=== PATIENT | male | born 1970 | race Caucasian/White ===

== ENCOUNTER 2017-05-07 23:37 | Inpatient (IN) | payer OTHER ==
--- NOTE | 2017-05-08 00:23 | PDOC ---
Attending Attestation - HPI HPI: 05/08/17 00:40 The patient is a 46 year old male, with a significant past medical history of hypertension and diabetes(insulin dependent), who presents to the emergency department with abdominal pain for approximately 2 days. The patient reports his pain was initially localized in his left lower quadrant, but is now localized in his right lower quadrant, but is nonradiating in nature. He rates his pain a 7-8/10. After dinner, patient reports several episodes of emesis(non bloody/non bilious in nature). He denies any fever, chills, diarrhea, or constipation. He denies any dysuria, hematuria, frequency, or urgency, He denies any prior history of abdominal surgeries. Patient reports 2 episodes of similar pain after eating cheese a few months ago, but states the pain was not as severe. Patient reports a history of heavy ETOH use, however, he states he has reduced his drinking to a bottle of scotch on the weekends. Allergies: NKDA Past Surgical History: None reported Social History: Social ETOH use. Non smoker. No recreational drug use. - Physicial Exam PE: 05/08/17 00:41 GENERAL: Well-appearing, well-nourished. Moderate distress. HEENT: Normocephalic, atraumatic. PERRL, EOM intact. CARDIOVASCULAR: Normal S1, S2. Regular rate and rhythm. PULMONARY: Clear to auscultation bilaterally. ABDOMEN: +RLQ tenderness, but no rebound or guarding. +Psoas sign. Soft, non-distended. Normoactive bowel sounds. EXTREMITIES: Normal ROM in all four extremities. No gross deformities. SKIN: Warm, dry. No rash NEUROLOGICAL: No focal neurological deficits. - Medical Decision Making 05/08/17 00:42 Documentation prepared by Caitie Donaldson, acting as medical driver for Noble Kyle DO. EXAM: CT Abdomen and Pelvis INTERPRETED BY: Dr. Noel REVIEWED BY: Dr. Kyle IMPRESSION: 1.3 cm diameter thick-walled appendix with surrounding fat inflammation, consistent with acute appendicitis. No abscess or free air. Neglible ascites lower pelvis. Minimal splenomegaly. <Caitie Donaldson - Last Filed: 05/08/17 04:56> - Resident Resident Name: Rachna Pal - ED Attending Attestation I have performed the following: I have examined & evaluated the patient, The case was reviewed & discussed with the resident, I agree w/resident's findings & plan, Exceptions are as noted - Medical Decision Making 05/08/17 05:00 Pt admitted for Acute Appendicitis <Noble Kyle - Last Filed: 05/08/17 05:00>
[2017-05-08] MEDS ORDERED: ONDANSETRON *ODT* 4 MG TABLET SL ONE (00:30)
[2017-05-08] MEDS ORDERED: morphine SULFATE 4 MG/ML VIAL IVPUSH ONE (00:30)
[2017-05-08] MEDS ORDERED: morphine CARPU-JECT 2 MG/1 ML DISP.SYRIN IVPUSH ONE (00:30)
[2017-05-08] MEDS ORDERED: SODIUM CHLORIDE 1,000 ML IV STA (00:31)
[2017-05-08] MEDS ORDERED: morphine SULFATE 4 MG/ML VIAL ONE ×2 (00:51→03:08)
[2017-05-08] MEDS ORDERED: ONDANSETRON 4 MG/2 ML VIAL ONE (00:51)
[2017-05-08 01:06] LABS: BASO % 0.5 % (0-2.0); MCH 30.4 pg (25.7-33.7); MCHC 34.1 g/dl (32.0-35.9); MEAN CELL VOLUME 89.3 fl (80-96); MEAN PLT VOLUME 9.4 fl (7.5-11.1); NEUT % 70.5 % (42.8-82.8); PLATELET COUNT 206 K/MM3 (134-434); WHITE BLOOD COUNT 12.8 K/mm3 (4.0-10.0)
--- NOTE | 2017-05-08 01:21 | PDOC ---
History of Present Illness - General Chief Complaint: Pain, Acute Stated Complaint: ABD PAIN Time Seen by Provider: 05/08/17 00:05 - History of Present Illness Initial Comments: 05/08/17 01:16 46yo man with PMH of HTN and IDDM who presents with acute onset lower abdominal pain and NBNB emesis since earlier this evening. Patient was at [facility] when after dinner he reports having LLQ pain that is now currently localized to RLQ. Pain is non-radiating and 7-8/10 in severity. He then had several episodes of NBNB emesis. No one else in the house has similar symptoms. No recent travel or illness. Denies fever, chills, diarrhea. Never smoker, drinks 1 bottle scotch per weekend, no drugs No prior surgeries No known allergies to medications Past History - Past Medical History Allergies/Adverse Reactions: Allergies Allergy/AdvReac Type Severity Reaction Status Date / Time No Known Allergies Allergy Verified 05/08/17 00:55 Home Medications: Ambulatory Orders NK [No Known Home Medication] 05/08/17 - Suicide/Smoking/Psychosocial Hx Smoking History: Never smoked Have you smoked in the past 12 months: No Information on smoking cessation initiated: No Hx Alcohol Use: No Drug/Substance Use Hx: No Review of Systems - Review of Systems ABD/GI: Yes: See HPI All Other Systems: Reviewed and Negative *Physical Exam - Vital Signs Last Vital Signs Temp Pulse Resp BP Pulse Ox 98.6 F 20 152/95 99 05/07/17 23:47 05/07/17 23:47 05/07/17 23:47 05/07/17 23:47 - Physical Exam General Appearance: Yes: Nourished, Appropriately Dressed HEENT: positive: Normal ENT Inspection Neck: positive: Supple Respiratory/Chest: positive: Lungs Clear, Normal Breath Sounds Cardiovascular: positive: Regular Rhythm, Regular Rate, S1, S2 Vascular Pulses: Dorsalis-Pedis (R): 2+, Doralis-Pedis (L): 2+ Gastrointestinal/Abdominal: positive: Tender (LLQ, +psoas, -obdurator, -Cohn's ), Flat, Soft. negative: Distended Musculoskeletal: negative: CVA Tenderness Extremity: positive: Normal Inspection. negative: Pedal Edema, Calf Tenderness Neurologic: positive: Fully Oriented, Alert, Normal Mood/Affect Heart Score/ECG Review - ECG Impressions Comment:: 05/08/17 05:22 NSR, rate 86bpm, normal axis and intervals (QTc 430), no ischemic changes ED Treatment Course - LABORATORY CBC & Chemistry Diagram: 05/08/17 00:43 05/08/17 00:43 - ADDITIONAL ORDERS Additional order review: 05/08/17 00:43 RBC 4.77 MCV 89.3 MCHC 34.1 RDW 12.0 MPV 9.4 Neutrophils % 70.5 Lymphocytes % 21.3 Monocytes % 6.7 Eosinophils % 1.0 Basophils % 0.5 - RADIOLOGY Radiology Studies Ordered: Category Date Time Status ABDOMEN & PELVIS CT WITH CONTR [CT] Stat CT Scan 05/08/17 00:30 Ordered Medical Decision Making - Medical Decision Making 46yo man with PMH of HTN and IDDM who presents with acute onset of RLQ pain lateralizing to LLQ and NBNB emesis. Differential includes, but not limited to appendicitis vs SBO vs gastroenteritis. -CT A/P with PO and IV contrast -CBC, CMP -Zofran for nausea, Morphine for pain control 05/08/17 05:00 Patient's pain well controlled with morphine. CT A/P revealed acute appendicitis. Labs remarkable for mild leukocytosis. Will give 1x dose of Flagyl 500mg IVP and Levofloxacin 750mg IVP as patient is diabetic. Will admit patient for appendectomy and order pre-op w/u: Coags, T&S, CXR, EKG 05/08/17 06:20 Admitted to M/S by Hospitalist. *DC/Admit/Observation/Transfer Diagnosis at time of Disposition: Acute appendicitis - Discharge Dispostion Condition at time of disposition: Stable Admit: Yes - Referrals - Patient Instructions - Post Discharge Activity
[2017-05-08 01:30] LABS: ALBUMIN 4.1 g/dl (3.4-5.0); ALK PHOS 53 U/L (45-117); ANION GAP 10 (8-16); BILIRUBIN,TOTAL 0.5 mg/dL (0.2-1.0); CALCIUM 8.9 mg/dL (8.5-10.1); CO2 29 mmol/L (21-32); CREATININE 0.8 mg/dL (0.7-1.3); GLUCOSE,RANDOM 117 mg/dL (74-106); SGOT/AST 19 U/L (15-37); SGPT/ALT 44 U/L (12-78); TOT PROT 7.1 g/dl (6.4-8.2)
[2017-05-08] MEDS ORDERED: METRONIDAZOLE 500 MG PREMIXED 500 MG/100 ML MG IVPB ONE ×2 (04:58→05:08)
[2017-05-08] MEDS ORDERED: LEVOFLOXACIN 750 MG IVPB 750 MG/150 ML BAG IVPB ONE ×2 (04:59→05:10)
[2017-05-08 05:24] LABS: INR 1.06 (0.82-1.09)
[2017-05-08] MEDS ORDERED: ONDANSETRON 4 MG/2 ML VIAL IVPUSH PRN ×2 (05:24→13:41)
[2017-05-08] MEDS ORDERED: morphine SULFATE 4 MG/ML VIAL IVPUSH PRN ×2 (05:24→13:41)
--- NOTE | 2017-05-08 05:28 | HP ---
<Geoffrey Oviedo - Last Filed: 05/08/17 05:45> CHIEF COMPLAINT: Abdominal Pain PCP:Not on staff HISTORY OF PRESENT ILLNESS: 46 year old M with pmh of IDDM and HTN presenting with abdominal pain. Patient came home from work and drank some coffee. He began feeling distended with LLQ pain. Pain was 10/10 and sharp. Patient then had 2 episodes of NB, NB emesis. His pain then was in the RLQ. Patient denies fever, chills, chest pain, SOB, diarrhea, constipation. ER course was notable for: (1) Labs remarkable for mild leukocytosis. (2) CT A/P revealed acute appendicitis (3) 1x dose of Flagyl 500mg IVP and Levofloxacin 750mg IVP Recent Travel: denies PAST MEDICAL HISTORY: as per hpi PAST SURGICAL HISTORY: denies Social History: Smoking: denies Alcohol: denies Drugs: denies Family History: Allergies No Known Allergies Allergy (Verified 05/08/17 00:55) HOME MEDICATIONS: Home Medications Medication Instructions Recorded NK [No Known Home Medication] 05/08/17 REVIEW OF SYSTEMS CONSTITUTIONAL: Absent: fever, chills, diaphoresis, generalized weakness, malaise, loss of appetite, weight change HEENT: Absent: rhinorrhea, nasal congestion, throat pain, throat swelling, difficulty swallowing, mouth swelling, ear pain, eye pain, visual changes CARDIOVASCULAR: Absent: chest pain, syncope, palpitations, irregular heart rate, lightheadedness , peripheral edema RESPIRATORY: Absent: cough, shortness of breath, dyspnea with exertion, orthopnea, wheezing, stridor, hemoptysis GASTROINTESTINAL: Absent: abdominal pain, abdominal distension, nausea, vomiting, diarrhea, constipation, melena, hematochezia GENITOURINARY: Absent: dysuria, frequency, urgency, hesitancy, hematuria, flank pain, genital pain MUSCULOSKELETAL: Absent: myalgia, arthralgia, joint swelling, back pain, neck pain SKIN: Absent: rash, itching, pallor HEMATOLOGIC/IMMUNOLOGIC: Absent: easy bleeding, easy bruising, lymphadenopathy, frequent infections ENDOCRINE: Absent: unexplained weight gain, unexplained weight loss, heat intolerance, cold intolerance NEUROLOGIC: Absent: headache, focal weakness or paresthesias, dizziness, unsteady gait, seizure, mental status changes, bladder or bowel incontinence PSYCHIATRIC: Absent: anxiety, depression, suicidal or homicidal ideation, hallucinations. PHYSICAL EXAMINATION Vital Signs - 24 hr 05/07/17 23:47 Temperature 98.6 F Respiratory 20 Rate Blood Pressure 152/95 O2 Sat by Pulse 99 Oximetry (%) GENERAL: Awake, alert, and fully oriented, in no acute distress. HEAD: Normal with no signs of trauma. EYES: Extraocular movements intact, sclera anicteric, conjunctiva clear. No lid lag. EARS, NOSE, THROAT: Oropharynx clear without exudates. Moist mucous membranes. NECK: Normal range of motion, supple without lymphadenopathy, JVD, or masses. LUNGS: Breath sounds equal, clear to auscultation bilaterally. No wheezes, and no crackles. No accessory muscle use. HEART: Regular rate and rhythm, normal S1 and S2 without murmur, rub or gallop. ABDOMEN: Soft, +RLQ tenderness, not distended, normoactive bowel sounds, no guarding, no rebound, no masses. No hepatomegaly or splenomegaly. negative yi's, negative psoas, negative obturator MUSCULOSKELETAL: Normal range of motion at all joints. No bony deformities or tenderness. No CVA tenderness. UPPER EXTREMITIES: 2+ pulses, warm, well-perfused. No cyanosis. No clubbing. No peripheral edema. LOWER EXTREMITIES: 2+ pulses, warm, well-perfused. No calf tenderness. No peripheral edema. NEUROLOGICAL: Cranial nerves II-XII intact. Normal speech. PSYCHIATRIC: Cooperative. Good eye contact. Appropriate mood and affect. SKIN: Warm, dry, normal turgor, no rashes or lesions noted, normal capillary refill. Laboratory Results - last 24 hr 05/08/17 05/08/17 00:43 00:43 WBC 12.8 H RBC 4.77 Hgb 14.5 Hct 42.6 MCV 89.3 MCH 30.4 MCHC 34.1 RDW 12.0 Plt Count 206 MPV 9.4 Neutrophils % 70.5 Lymphocytes % 21.3 Monocytes % 6.7 Eosinophils % 1.0 Basophils % 0.5 Sodium 139 Potassium 3.8 Chloride 100 Carbon Dioxide 29 Anion Gap 10 BUN 15 Creatinine 0.8 Creat Clearance w eGFR > 60 Random Glucose 117 H Calcium 8.9 Total Bilirubin 0.5 AST 19 ALT 44 Alkaline Phosphatase 53 Total Protein 7.1 Albumin 4.1 ASSESSMENT/PLAN: 46 year old M with pmh of HTN and IDDM presenting with abdominal pain admitted for acute appendicitis. #Acute appendicitis -NPO -IVF NS @ 125 cc/hr -PT/INR/T&S pending -Surgery consulted, Dr. Drake -Morphine 2mg q4 prn -Zofran 4mg q6h prn -1x dose of Flagyl 500mg IVP and Levofloxacin 750mg IVP #HTN -Home medications need to be confirmed #HLD -Home medications need to be confirmed #IDDM -BGM achs -ISS achs -Hold metformin #FEN/GI -IVF NS @ 125 cc/hr -wnl -NPO #PPx -SCDs b/l -Pepcid 20 mg IV BID Case discussed with medical team. Visit type - Emergency Visit Emergency Visit: Yes Care time: The patient presented to the Emergency Department on the above date and was hospitalized for further evaluation of their emergent condition. - New Patient This patient is new to me today: Yes Date on this admission: 05/08/17 - Critical Care Critical Care patient: No <Olga Lidia Del Rio - Last Filed: 05/08/17 06:39> Patient is seen and examined Agree with plan above 46 year old male with acute onset of abdominal pain CT imaging - appendicitis PMH DM HTn Vital Signs Temperature 98.6 F 05/07/17 23:47 Pulse Rate Respiratory Rate 20 05/07/17 23:47 Blood Pressure 152/95 05/07/17 23:47 O2 Sat by Pulse Oximetry (%) 99 05/07/17 23:47 LUNGS: Breath sounds equal, clear to auscultation bilaterally. No wheezes, and no crackles. No accessory muscle use. HEART: Regular rate and rhythm, normal S1 and S2 without murmur, rub or gallop. ABDOMEN: Soft, +RLQ tenderness, not distended, normoactive bowel sounds, CBC, BMP 05/08/17 00:43 05/08/17 00:43 PLAN NPO Surgical evaluation for appendectomy IVF insuulin SS 46 year old male that presented to the ED on 05/07 around 23:00 with complaints of abdominal pain . He met the necessity for the first midnight of hospitalization due to need for pain control and CT imaging . First midnight was crossed while in ED . Based on the current plan for NPO and laparoscopic and possibly open appendectomy and need for postoperative pain management / monitoring , anticipated length of hospitalization is greater then 2 midnights. Will admit as an inpatient .
[2017-05-08] MEDS ORDERED: SODIUM CHLORIDE 1,000 ML IV SCH ×2 (05:30→13:41)
[2017-05-08 06:53] VITALS: BMI 29.7
[2017-05-08] MEDS: INSULIN SLIDING SCALE (NOVOLOG) 1 VIAL SQ SCH ×3 (06:58→16:52)
--- NOTE | 2017-05-08 07:50 | PN ---
Physical Exam: SUBJECTIVE: Patient seen and examined OBJECTIVE: Vital Signs Intake & Output 05/05/17 05/06/17 05/07/17 05/08/17 23:59 23:59 23:59 23:59 Weight 86.183 kg 91.354 kg Period Temp Pulse Resp BP Sys/Tidwell Pulse Ox Last 24 Hr 98.0 F-98.6 F 82 20-20 127-152/79-95 93-99 GENERAL: The patient is awake, alert, and fully oriented, in no acute distress. HEAD: Normal with no signs of trauma. EYES: PERRL, extraocular movements intact, sclera anicteric, conjunctiva clear. No ptosis. ENT: Ears normal, nares patent, oropharynx clear without exudates, moist mucous membranes. NECK: Trachea midline, full range of motion, supple. LUNGS: Breath sounds equal, clear to auscultation bilaterally, no wheezes, no crackles, no accessory muscle use. HEART: Regular rate and rhythm, S1, S2 without murmur, rub or gallop. ABDOMEN: Soft, nontender, nondistended, normoactive bowel sounds, no guarding, no rebound, no hepatosplenomegaly, no masses. EXTREMITIES: 2+ pulses, warm, well-perfused, no edema. NEUROLOGICAL: Cranial nerves II through XII grossly intact. Normal speech, gait not observed. PSYCH: Normal mood, normal affect. SKIN: Warm, dry, normal turgor, no rashes or lesions noted Laboratory Results - last 24 hr CBC, BMP 05/08/17 00:43 05/08/17 00:43 05/08/17 05/08/17 05/08/17 00:43 00:43 04:55 WBC 12.8 H RBC 4.77 Hgb 14.5 Hct 42.6 MCV 89.3 MCH 30.4 MCHC 34.1 RDW 12.0 Plt Count 206 MPV 9.4 Neutrophils % 70.5 Lymphocytes % 21.3 Monocytes % 6.7 Eosinophils % 1.0 Basophils % 0.5 PT with INR 12.00 H INR 1.06 Sodium 139 Potassium 3.8 Chloride 100 Carbon Dioxide 29 Anion Gap 10 BUN 15 Creatinine 0.8 Creat Clearance w eGFR > 60 POC Glucometer Random Glucose 117 H Calcium 8.9 Total Bilirubin 0.5 AST 19 ALT 44 Alkaline Phosphatase 53 Total Protein 7.1 Albumin 4.1 Blood Type Antibody Screen 05/08/17 05/08/17 04:55 06:56 WBC RBC Hgb Hct MCV MCH MCHC RDW Plt Count MPV Neutrophils % Lymphocytes % Monocytes % Eosinophils % Basophils % PT with INR INR Sodium Potassium Chloride Carbon Dioxide Anion Gap BUN Creatinine Creat Clearance w eGFR POC Glucometer 138 Random Glucose Calcium Total Bilirubin AST ALT Alkaline Phosphatase Total Protein Albumin Blood Type A POSITIVE Antibody Screen Negative Active Medications Generic Name Dose Route Start Last Admin Trade Name Freq PRN Reason Stop Dose Admin Sodium Chloride 1,000 mls @ 125 mls/hr 05/08/17 05:30 05/08/17 05:54 Normal Saline - IV 125 mls/hr ASDIR SAMUEL Administration Famotidine 20 mg in 12 mls @ 144 mls/hr 05/08/17 10:00 Pepcid 20 Mg/12 Ml Push IVPUSH BID SAMUEL Insulin Aspart 1 vial 05/08/17 07:00 05/08/17 06:58 Novolog Vial Sliding Scale - SQ Not Given ACHS [facility] Protocol Morphine Sulfate 2 mg 05/08/17 05:24 Morphine Sulfate IVPUSH Q4H PRN PAIN Ondansetron HCl 4 mg 05/08/17 05:24 Zofran Injection IVPUSH Q6H PRN NAUSEA CXR 05/08 - No lung pathology CT abdomen/pelvis 05/08 - ASSESSMENT/PLAN:
[2017-05-08 09:00] LABS: BASO % 0.4 % (0-2.0); EOS % 1.1 % (0-4.5); MCH 30.1 pg (25.7-33.7); MEAN CELL VOLUME 88.6 fl (80-96); MEAN PLT VOLUME 9.3 fl (7.5-11.1); NEUT % 72.3 % (42.8-82.8); PLATELET COUNT 173 K/MM3 (134-434); RDW 12.2 % (11.9-15.9); WHITE BLOOD COUNT 11.8 K/mm3 (4.0-10.0)
--- NOTE | 2017-05-08 09:13 | EKG ---
Test Reason : Blood Pressure : / mmHG Vent. Rate : 086 BPM Atrial Rate : 086 BPM P-R Int : 168 ms QRS Dur : 082 ms QT Int : 360 ms P-R-T Axes : 052 042 049 degrees QTc Int : 430 ms NORMAL SINUS RHYTHM NO PREVIOUS ECGS AVAILABLE Confirmed by JABARI NIETO MD ([id number]) on 05/08/2017 9:13:16 AM Referred By: Confirmed By:JABARI NIETO MD
[2017-05-08 09:21] LABS: ANION GAP 7 (8-16); CALCIUM 7.8 mg/dL (8.5-10.1); CO2 27 mmol/L (21-32); CREATININE 0.7 mg/dL (0.7-1.3); GLUCOSE,RANDOM 127 mg/dL (74-106)
--- NOTE | 2017-05-08 09:55 | CONSULT ---
- Consultation REQUESTING PROVIDER: Quang MORALES CONSULT REQUEST: We have been asked to surgically evaluate this patient for ( specify). PCP:Sandrita Forbes HISTORY OF PRESENT ILLNESS: CTSP who is a 46 y/o male who presented w/ RLQ pain that started ~ 24 hours ago as generalized and then localized to the RLQ; he has associated n/v; he admits to anorexia; pain increased by moving around; decreased by lying still; no radiation from RLQ; he denies any other GI or c/o's. H and P conducted in [place]. PMHx: IDDM; hypertension PSHx: none Home Medications Medication Instructions Recorded Aspirin [ASA -] 81 mg PO DAILY 05/08/17 Dulaglutide [Trulicity] 1 dose SQ WEEKLY 05/08/17 Fosinopril Sodium 20 mg PO DAILY 05/08/17 Insulin Glargine,Hum.rec.anlog 45 units SQ DAILY 05/08/17 [Basaglar Kwikpen U-100] Metformin HCl [Glucophage] 1,000 mg PO BID 05/08/17 Allergies Allergy/AdvReac Type Severity Reaction Status Date / Time No Known Allergies Allergy Verified 05/08/17 00:55 REVIEW OF SYSTEMS: CONSTITUTIONAL: Absent: fever, chills, diaphoresis, generalized weakness, malaise, loss of appetite, weight change CARDIOVASCULAR: Absent: chest pain, syncope, palpitations, irregular heart rate, lightheadedness , peripheral edema RESPIRATORY: Absent: cough, shortness of breath, dyspnea with exertion, wheezing, stridor, hemoptysis GASTROINTESTINAL: Absent: abdominal pain on this admission only, abdominal distension, nausea, vomiting, diarrhea, constipation, melena, hematochezia GENITOURINARY: Absent: dysuria, frequency, urgency, hesitancy, hematuria, flank pain, genital pain MUSCULOSKELETAL: Absent: myalgia, arthralgia, joint swelling, back pain, neck pain SKIN: Absent: rash, itching, pallor HEMATOLOGIC/IMMUNOLOGIC: Absent: easy bleeding, easy bruising, lymphadenopathy NEUROLOGIC: Absent: headache, focal weakness, paresthesias, dizziness, unsteady gait, seizure, mental status changes, bladder or bowel incontinence PSYCHIATRIC: Absent: anxiety, depression, suicidal or homicidal ideation, hallucinations. PHYSICAL EXAM: GENERAL: Awake, alert, and fully oriented, in no acute distress. HEAD: Normal with no signs of trauma. EYES:sclera anicteric, conjunctiva clear. NECK: Normal ROM, supple without lymphadenopathy, JVD, or masses. LUNGS: Clear to auscultation bilat anteriorly. HEART: Regular rate and rhythm. No murmurs ABDOMEN: Soft, RLQ tenderness w/guarding; no rebound; Rovsings; psoas and obturator signs are present; not distended, normoactive bowel sounds. No organomegaly; no hernias. MUSCULOSKELETAL: Normal ROM at all joints. No bony deformities or tenderness. No CVA tenderness. UPPER EXTREMITIES: 2+ pulses, warm, well-perfused. No cyanosis. Cap refill <2 seconds. No peripheral edema. LOWER EXTREMITIES: 2+ pulses, warm, well-perfused. No calf tenderness. No peripheral edema. NEUROLOGICAL: Normal speech, gait not observed. PSYCH: Cooperative. Good eye contact. Appropriate mood and affect. SKIN: Warm, dry, normal turgor, no rashes or lesions noted. Vital Signs Temperature 98.0 F 05/08/17 06:25 Pulse Rate 82 05/08/17 06:25 Respiratory Rate 20 05/08/17 06:25 Blood Pressure 127/79 05/08/17 06:25 O2 Sat by Pulse Oximetry (%) 93 L 05/08/17 06:25 Lab Results WBC 11.8 K/mm3 (4.0-10.0) H 05/08/17 08:44 RBC 4.42 M/mm3 (4.00-5.60) 05/08/17 08:44 Hgb 13.3 GM/dL (11.7-16.9) 05/08/17 08:44 Hct 39.2 % (35.4-49) 05/08/17 08:44 MCV 88.6 fl (80-96) 05/08/17 08:44 MCHC 34.0 g/dl (32.0-35.9) 05/08/17 08:44 RDW 12.2 % (11.9-15.9) 05/08/17 08:44 Plt Count 173 K/MM3 (134-434) 05/08/17 08:44 Sodium 137 mmol/L (136-145) 05/08/17 08:44 Potassium 3.9 mmol/L (3.5-5.1) 05/08/17 08:44 Chloride 103 mmol/L (98-107) 05/08/17 08:44 Carbon Dioxide 27 mmol/L (21-32) 05/08/17 08:44 Anion Gap 7 (8-16) L 05/08/17 08:44 BUN 12 mg/dL (7-18) 05/08/17 08:44 Creatinine 0.7 mg/dL (0.7-1.3) 05/08/17 08:44 Random Glucose 127 mg/dL (74-106) H 05/08/17 08:44 Calcium 7.8 mg/dL (8.5-10.1) L 05/08/17 08:44 Blood Type A POSITIVE 05/08/17 04:55 Antibody Screen Negative 05/08/17 04:55 INR 1.06 (0.82-1.09) 05/08/17 04:55 CT a/p report and images reviewed IMP:acute appendicitis PLAN; laparoscopic possible open appendectomy; d/w patient r/b/t/a's and he has signed informed consent. Pilo Draek MD FACS Visit type - Case Type Case Type: ED Admission - Emergency Emergency Visit: Yes ED Registration Date: 05/08/17 Care time: The patient presented to the Emergency Department on the above date and was hospitalized for further evaluation of their emergent condition. - New patient This patient is new to me today: Yes Date on this admission: 05/08/17
[2017-05-08] MEDS ORDERED: FAMOTIDINE IV 20 MG/12 ML VIAL IVPUSH SCH (10:00)
[2017-05-08] MEDS ORDERED: METRONIDAZOLE 500 MG PREMIXED 500 MG/100 ML MG IVPB SCH (10:00)
[2017-05-08] MEDS ORDERED: PT OWN MED DRAWER 7, Y5N ONE (10:11)
[2017-05-08] MEDS ORDERED: DEXAMETHASONE SOD PHOSPHATE 4 MG/1 ML VIAL ONE ×2 (11:31→12:44)
[2017-05-08] MEDS ORDERED: LIDOCAINE HCL/PF 2% SDV 5ML VIAL ONE (11:31)
[2017-05-08] MEDS ORDERED: PROPOFOL 20 ML ONE (11:32)
[2017-05-08] MEDS ORDERED: ROCURONIUM BROMIDE 50 MG/5 ML VIAL ONE (11:32)
[2017-05-08] MEDS ORDERED: MIDAZOLAM HCL 2 MG/2 ML SINGLE DOSE VIAL ONE (11:32)
[2017-05-08] MEDS ORDERED: BUPIVACAINE HCL/PF 0.5% (5MG/ML) 10 ML VIAL ONE (11:49)
[2017-05-08] MEDS ORDERED: GLYCOPYRROLATE 0.2 MG/1 ML VIAL ONE (12:44)
[2017-05-08] MEDS ORDERED: NEOSTIGMINE METHYLSULFATE 0.5 MG/ML - 10 ML MDV ONE (12:45)
[2017-05-08] MEDS ORDERED: BUPIVACAINE HCL/PF (5 MG/ML) 30 ML VIAL IJ ONE ×2 (12:55)
[2017-05-08] MEDS ORDERED: PROMETHAZINE HCL 25 MG/1 ML VIAL IVPUSH PRN ×2 (13:20→13:41)
[2017-05-08] MEDS ORDERED: HYDROmorphone HCL CARPU-JECT 1 MG/1 ML DISP.SYRIN IVPUSH PRN ×2 (13:20→13:41)
[2017-05-08] MEDS ORDERED: HYDROmorphone HCL CARPU-JECT 2 MG/1 ML DISP.SYRIN ONE (14:18)
--- NOTE | 2017-05-08 15:17 | OP ---
Operative Note - Note: Operative Date: 05/08/17 Pre-Operative Diagnosis: acute appendicitis Operation: laparoscopic appendectomy Findings: acute suppurative appendicitis Post-Operative Diagnosis: Same as Pre-op Surgeon: Pilo Drake Anesthesiologist/SAP BOBJ DEVELOPER: Jose Dunlap Anesthesia: General Specimens Removed: appendix Estimated Blood Loss (mls): 10 Drains & Tubes with Location: none
[2017-05-09] MEDS: FAMOTIDINE IV 20 MG/12 ML VIAL IVPUSH SCH ×2 (02:57→09:59)
[2017-05-09] MEDS: INSULIN SLIDING SCALE (NOVOLOG) 1 VIAL SQ SCH ×3 (06:20→12:25)
[2017-05-09] MEDS ORDERED: oxyCODONE HCL 5 MG TABLET PO PRN (07:59)
[2017-05-09 09:16] LABS: BASO % 0.3 % (0-2.0); EOS % 0.3 % (0-4.5); MCHC 33.3 g/dl (32.0-35.9); MEAN CELL VOLUME 90.1 fl (80-96); MEAN PLT VOLUME 9.4 fl (7.5-11.1); NEUT % 65.3 % (42.8-82.8); PLATELET COUNT 202 K/MM3 (134-434); WHITE BLOOD COUNT 7.3 K/mm3 (4.0-10.0)
--- NOTE | 2017-05-09 10:38 | PN ---
Progress Note (short form) - Note Progress Note: POD#1 Pt tolerating clears, he has some nausea/emesis last night but it has improved this am. Passed small amount of flatus. Voiding on his own, non-bloody. Vital Signs Period Temp Pulse Resp BP Sys/Tidwell Pulse Ox Last 24 Hr 98.1 F-98.9 F 70-103 10-20 108-137/58-84 96-99 GEN: appears comfortable CV:RRR Lungs: CTA b/l ABD: soft, non-distended, inc tenderness. Inc c/d/i with steri-strips/bandaids LE: SCDs in place and working. CBC, BMP 05/09/17 09:00 05/08/17 08:44 Laboratory Tests 05/08/17 05/08/17 05/09/17 16:45 23:59 05:59 POC Glucometer 182 183 156 A/p: s/p lap appy for acute appendicitis advance diet to diabetic plan for discharge to home today D/w Dr. Drake, discharge instructions completed may resume his aspirin tomorrow <Ansley Moreau - Last Filed: 05/09/17 10:39> - Note Progress Note: Attending Surgeon POD #1 Seen and evaluated; concur w/a/p as outlined above; d/c home today to office f/ u next week. Pilo Drake MD FACS <Pilo Drake - Last Filed: 05/09/17 12:04>
[2017-05-09] MEDS ORDERED: INSULIN DETEMIR 100 UNITS/ML MDV SQ ONE (11:56)
[2017-05-09] MEDS ORDERED: INSULIN (NOVOLOG) ASPART 100 UNITS/ML 10ML VIAL ONE (12:22)
[2017-05-09 14:16] VITALS: BP 114/75; PULSE 88; TEMP 98.4
--- NOTE | 2017-05-09 15:03 | PN ---
Teaching Attending Note Name of Resident: Blessing Galan ATTENDING PHYSICIAN STATEMENT I saw and evaluated the patient. I reviewed the resident's note and discussed the case with the resident. I agree with the resident's findings and plan as documented. SUBJECTIVE: No fever or chills . has minimal Abd pain below the umbilicus . No Nausea , passed gas. OBJECTIVE: NAD Cv : RRR Lung s: CTAB ext : no edema Abd: soft, Nd, TTP in suprapubic area with no rebound tenderness . has endoscopic wounds with clean dressing and streistrips ASSESSMENT AND PLAN: 46 y/o man withh/o DM, HT, HLP, and other medical problems who presented with abd painand was found to have acute appendicitis 1- Acute appendicitis: passed gas , tolerated soft diet. doing well dc home with surgical f/u wound care 2- DM , HLP, HTN: cont home regimen of meds Dc Home
--- NOTE | 2017-05-09 15:50 | DS ---
Physical Exam: SUBJECTIVE: Patient seen and examined by me at bedside. Overnight events noted for nausea and some emesis last night but resolved today. Patient was able to pass a small amount of flatus but no bowel movements. Complains of mild tenderness at the incision site below the umbilicus. Otherwise, patient denies fever, chills, nausea, chest pain, palpitations, shortness of breath, headaches. Patient was able to tolerate Diabetic controlled diet with no nausea, vomiting or abdominal pain. OBJECTIVE: Vital Signs Period Temp Pulse Resp BP Sys/Tidwell Pulse Ox Last 24 Hr 98.1 F-98.9 F 80-103 18-20 108-134/58-84 99-99 PHYSICAL EXAM GENERAL: The patient is awake, alert, and fully oriented, in no acute distress. EYES: PERRL, extraocular movements intact, sclera anicteric, conjunctiva clear. ENT: Oropharynx clear without exudates, moist mucous membranes. LUNGS: Breath sounds equal, clear to auscultation bilaterally, no wheezes, no crackles, no accessory muscle use. HEART: Regular rate and rhythm, without murmur, rub or gallop. ABDOMEN: Soft, distended, tenderness upon palpation of incision site below umbilicus with incision sites c/d/i, Hyperactive bowel sounds, no guarding, no rebound. EXTREMITIES: No peripheral edema. NEUROLOGICAL: Cranial nerves II through XII grossly intact. Normal Speech. No facial droop. Motor strength 5/5 bilaterally. Sensory intact PSYCH: Normal mood, normal affect. SKIN: Warm, dry, normal turgor, no rashes or lesions noted. LABS Laboratory Results - last 24 hr 05/08/17 05/08/17 05/09/17 16:45 23:59 05:59 WBC RBC Hgb Hct MCV MCH MCHC RDW Plt Count MPV Neutrophils % Lymphocytes % Monocytes % Eosinophils % Basophils % POC Glucometer 182 183 156 05/09/17 05/09/17 09:00 12:12 WBC 7.3 D RBC 4.52 Hgb 13.6 Hct 40.8 MCV 90.1 MCH 30.0 MCHC 33.3 RDW 12.0 Plt Count 202 MPV 9.4 Neutrophils % 65.3 Lymphocytes % 25.1 D Monocytes % 9.0 Eosinophils % 0.3 Basophils % 0.3 POC Glucometer [address] Abdomen (05/08/17): FINDINGS CONSISTENT WITH ACUTE APPENDICITIS WITH NO ABSCESS FORMATION Chest X-ray (05/08/17): No evidence of acute pulmonary disease HOSPITAL COURSE: Patient is a 46 year old male with a PMHx of HTN and NIDDMII who presented for RLQ abdominal pain associated with nausea and vomiting and CT revealed an acute appendicitis. Patient was given IV abx in the ED and surgical consult was placed. Patient is S/P Laprascopic appendectomy POD #1 with no complications. Patient did not require much pain medications throughout his medical course and patient had small amount of flatus today with no bowel movements. Patient tolerated Regular diet today with no pain, nausea or vomiting. Patient stable for discharge and was given instruction to follow up with Surgeon and PCP within a week. Patient was advised to continue his home medications but to resume his Aspirin the following day (05/10/17). Date of Admission:05/08/17 Date of Discharge: 05/09/17 Minutes to complete discharge: 45 Discharge Summary Reason For Visit: ACUTE APPENDICITIS Condition: Improved - Instructions Diet, Activity, Other Instructions: Dr. Drake Discharge Instructions Dear MATT LAYTON, Post Operative Instructions Physical activity Resume your normal everyday activity as tolerated no heavy lifting or exercise until seen by your surgeon. You may walk unlimited amounts of and climb stairs. You may resume driving the car when you feel safe and comfortable behind the wheel. Wound care If you have a bandage, leave it on, and keep dry for 48 - 72 hours. After that time discard the outer bandage. If there are tapes on the skin under the outer bandage, leave them in place. They will peel off in the next 7 to 10 days. Do Not peel them off. You may shower 2 days after surgery. If there are tapes present on the skin, they can get wet. Diet There are no dietary restrictions. Eat healthy, high-fiber foods. Drink 6 to 8 glasses of liquid each day. This will assist in keeping your bowels are regular. Pain management You may take Tylenol or acetaminophen or Ibuprofen (for example, Motrin, Advil etc.) Any pain prescription medication ordered should be taken as prescribed for moderate to severe pain. Call Dr. Drake for any of the following: Severe pain not relieved by medication Fever of 101 or higher Excessive bleeding or drainage on dressing Inability to urinate Call the office at [phone] for a post operative appointment in 7 - 10 days. You were treated for acute appendicitis. Please follow-up with Dr. Drake for post-operation evaluation in the office. If you note discharge or redness around the surgical sites, develop chest pain, trouble breathing, high fevers, worsening abdominal pain, or any new symptoms, please return to the hospital. -You may resume your Aspirin Tomorrow (05/10/17) - please take lower dose of your long acting insulin in am tomorrow , and until your oral intake is back to Normal. check your sugar every am and before each meal. call your doctor if your sugar is too low ( < 80) or too high > 300 . take orange juice for any low blood sugar symptoms or if sugar < 70 Referrals: Pilo Drake MD [Staff Physician] - STAFF,NOT ON [Primary Care Provider] - Disposition: HOME - Home Medications Comprehensive Discharge Medication List: Ambulatory Orders Aspirin [ASA -] 81 mg PO DAILY 05/08/17 Dulaglutide [Trulicity] 1.5 dose SQ WEEKLY 05/08/17 Insulin Glargine,Hum.rec.anlog [Basaglar Kwikpen U-100] 50 units SQ DAILY Metformin HCl [Glucophage] 2,000 mg PO HS 05/08/17 Atorvastatin Ca [Lipitor] 80 mg PO HS 05/09/17 Lisinopril [Prinivil] 20 mg PO DAILY 05/09/17 This patient is new to me today: Yes Date on this admission: 05/09/17 Emergency Visit: Yes ED Registration Date: 05/08/17 Care time: The patient presented to the Emergency Department on the above date and was hospitalized for further evaluation of their emergent condition. Critical Care patient: No - Discharge Referral Referred to [facility] Med P.C.: No
--- NOTE | 2017-05-11 17:01 | PATH ---
Surgical Pathology Report Patient Name: MATT LAYTON [facility]. Rec. #: [id number] /Age/Gender: 1970 (Age: 46) / M Account: [id number] Location: [facility] MED/SURG Taken: 05/08/2017 Received: 05/08/2017 Reported: 05/11/2017 Physicians: Pilo Drake MD Specimen(s) Received APPENDIX Clinical History Acute appendicitis Final Diagnosis APPENDIX, LAPAROSCOPIC APPENDECTOMY: ACUTE APPENDICITIS AND PERIAPPENDICITIS. Electronically Signed Antionette Coon M.D. Gross Description Received in formalin, labeled "appendix," is a 6 cm. in length vermiform appendix with a stapled margin of resection and moderate attached fat. The serosa is dove-pink with focal exudate. Sectioning reveals a hemorrhagic lumen. The wall of the appendix averages 0.0 cm. in thickness. Cooler Conveyor Loader sections are submitted in one cassette. 05/08/201705/08/2017
--- NOTE | 2017-05-11 20:43 | OP ---
DATE OF OPERATION: 05/08/2017 PREOPERATIVE DIAGNOSIS: Acute appendicitis. POSTOPERATIVE DIAGNOSIS: Acute appendicitis. PROCEDURE: Laparoscopic appendectomy. SURGEON: Pilo Drake MD ANESTHESIA: General. OPERATIVE FINDINGS: Acute suppurative appendicitis. The rest of the findings were unremarkable. DESCRIPTION OF PROCEDURE: The patient was placed on the operating table in supine position, and after the induction of general anesthesia, a timeout was taken after the patient's abdomen was prepped with ChloraPrep and draped in sterile fashion. Pneumoperitoneum was established above the umbilicus using the Veress needle to an intraabdominal pressure of 15 mmHg. An additional suprapubic 12-mm port was placed and a left lower quadrant 5-mm port was placed and the patient was placed in the head-down position, rotated to the left. Laparoscopy was carried out, and the appendix was identified. It was grasped, and the mesoappendix serially divided using LigaSure device down to the base of the appendix. Once the base of the appendix was clearly identified at the confluence of the tenia of the right colon, an Endo BEREKET 45-mm blue stapler was fired across the base. At this point, there was no evidence of bleeding from the stump, and the appendix was placed in a specimen retrieval bag and brought out through the suprapubic port. Pneumoperitoneum was re- established, and irrigation was carried out until the return was clear and again hemostasis verified. At this point, the pneumoperitoneum was released. All ports were removed under laparoscopic vision without evidence of bleeding from the port sites and the port sites infiltrated with 0.50% Marcaine. The defect in the fascia at the suprapubic port was closed with a 0 Vicryl figure-of-8 suture. All skin incisions were closed with 4-0 Monocryl in a subcuticular continuous fashion, followed by Steri-Strips and Band-Aid dressings. The procedure was terminated at this point and the patient aroused from general anesthesia and transferred to the postanesthesia care unit in stable condition, awake and alert. ESTIMATED BLOOD LOSS: 10 mL REPLACEMENTS: Crystalloid. DRAINS: None. SPECIMENS: Appendix to Pathology. I, Pilo Drake MD, was physically present in the operating room from the time the patient was placed on the operating table until he was transferred to the postanesthesia care unit in my accompaniment. MD FREDDIE Arredondo/[id number] MTDD
== END 2017-05-09 15:32 | disposition home or self-care (01) | DRG 225 ==
LOC: JER 23:37 → JERBED 05-08 04:57 → J8W 05-08 07:37
PROVIDERS: ADMIT Internal Medicine; ATTEND Internal Medicine
PROC: 0DTJ4ZZ Resection of Appendix, Percutaneous Endoscopic Approach (ICD-10-PCS; principal; 2017-05-08 12:00)
DX: K35.89 Other acute appendicitis (principal); I10 Essential (primary) hypertension; E11.9 Type 2 diabetes mellitus without complications; F10.20 Alcohol dependence, uncomplicated; E78.5 Hyperlipidemia, unspecified; D72.828 Other elevated white blood cell count; R63.0 Anorexia; Z68.29 Body mass index [BMI] 29.0-29.9, adult; Z79.4 Long term (current) use of insulin
CPT/HCPCS: 36415; 71020-TC; 74177-TC; 80048; 80053; 85025; 85610; 86850; 86900; 86901; 88304-TC; 93005; 93010; 94760; 99285-25

== ENCOUNTER 2021-12-29 12:19 | Emergency (ER) | payer OTHER ==
[2021-12-29 12:32] VITALS: BP 139/89; PULSE 79; RESP 18; TEMP 98.5; BMI 30.1
[2021-12-29] MEDS ORDERED: LORazepam 1 MG TABLET PO ONE (12:57)
[2021-12-29] MEDS ORDERED: LORazepam 1 MG TABLET ONE (13:19)
[2021-12-29 13:39] LABS: BASO % 0.5 % (0-2.0); EOS % 1.5 % (0-4.5); HEMATOCRIT 44.2 % (35.4-49); HEMOGLOBIN 15.3 GM/dL (11.7-16.9); LYMPH % 51.8 % (8-40); MCH 30.5 pg (25.7-33.7); MCHC 34.7 g/dl (32.0-35.9); MEAN CELL VOLUME 88.1 fl (80-96); MEAN PLT VOLUME 9.3 fl (7.5-11.1); MONO % 8.4 % (3.8-10.2); NEUT % 37.8 % (42.8-82.8); PLATELET COUNT 179 10^3/uL (134-434); RBC 5.02 M/mm3 (4.00-5.60); RDW 12.2 % (11.9-15.9); WHITE BLOOD COUNT 3.9 K/mm3 (4.0-10.0)
[2021-12-29 13:54] LABS: INR 1.04 (0.83-1.09)
[2021-12-29 13:57] LABS: CHLORIDE 102 mmol/L (98-107); SODIUM 135 mmol/L (136-145)
[2021-12-29 13:59] LABS: ALBUMIN 4.1 g/dl (3.4-5.0); CALCIUM 9.1 mg/dL (8.5-10.1); CO2 25 mmol/L (21-32); GLUCOSE,RANDOM 175 mg/dL (74-106)
[2021-12-29 14:00] LABS: BLOOD UREA NITROGEN 10.5 mg/dL (7-18)
[2021-12-29 14:02] LABS: CREATININE 0.8 mg/dL (0.55-1.3); SGPT/ALT 63 U/L (13-61)
[2021-12-29 14:03] LABS: SGOT/AST 57 U/L (15-37)
[2021-12-29 14:04] LABS: BILIRUBIN,TOTAL 0.7 mg/dL (0.2-1); TOT PROT 7.6 g/dl (6.4-8.2)
[2021-12-29 14:05] LABS: ALK PHOS 56 U/L (45-117)
[2021-12-29 14:06] LABS: ANION GAP 8 MMOL/L (8-16)
== END 2021-12-29 16:11 | disposition home or self-care (01) ==
LOC: JER 12:19
DX: R41.9 Unspecified symptoms and signs involving cognitive functions and awareness (principal); R42 Dizziness and giddiness
CPT/HCPCS: 36415; 71046-TC-FY; 80053; 84132; 84484; 85025; 85379; 85610; 93005; 93010; 99285-25

== ENCOUNTER 2021-12-30 14:51 | Emergency (ER) | payer OTHER ==
[2021-12-30 15:06] VITALS: BP 127/88; RESP 18; TEMP 98.3; BMI 29.8
[2021-12-30 18:40] VITALS: PULSE 85
== END 2021-12-30 18:40 | disposition home or self-care (01) ==
LOC: JER 14:51
DX: R05.9 Cough, unspecified (principal); U09.9 Post COVID-19 condition, unspecified
CPT/HCPCS: 99282-25

== ENCOUNTER 2022-07-06 09:08 | Emergency (ER) | payer OTHER ==
[2022-07-06 09:13] VITALS: RESP 18; BMI 29.2
[2022-07-06] MEDS ORDERED: ACETAMINOPHEN 1000 MG/100 ML BAG IVPB ONE (10:13)
[2022-07-06] MEDS ORDERED: SODIUM CHLORIDE 1,000 ML IV STA (10:13)
[2022-07-06] MEDS ORDERED: ACETAMINOPHEN INJECTION 100 ML IVPB ONE (10:15)
[2022-07-06 10:51] LABS: BASO % 0.5 % (0-2.0); EOS % 2.1 % (0-4.5); HEMATOCRIT 43.4 % (35.4-49); HEMOGLOBIN 14.9 GM/dL (11.7-16.9); LYMPH % 28.8 % (8-40); MCH 31.1 pg (25.7-33.7); MCHC 34.3 g/dl (32.0-35.9); MEAN CELL VOLUME 90.7 fl (80-96); MEAN PLT VOLUME 9.1 fl (7.5-11.1); MONO % 7.6 % (3.8-10.2); PLATELET COUNT 204 10^3/uL (134-434); RBC 4.78 M/mm3 (4.00-5.60); RDW 12.8 % (11.9-15.9); WHITE BLOOD COUNT 5.9 K/mm3 (4.0-10.0)
[2022-07-06 10:59] LABS: INR 1.08 (0.83-1.09); PROTHROMBIN TIME (PATIENT) 12.5 SEC (9.7-13.0)
[2022-07-06 11:02] LABS: ACTIVATED PTT 29.7 SECONDS (25.2-36.5)
[2022-07-06 11:16] LABS: ALBUMIN 4.2 g/dl (3.4-5.0); BLOOD UREA NITROGEN 8.2 mg/dL (7-18); CALCIUM 8.9 mg/dL (8.5-10.1)
[2022-07-06 11:19] LABS: CREATININE 0.7 mg/dL (0.55-1.3)
[2022-07-06 11:21] LABS: BILIRUBIN,TOTAL 0.6 mg/dL (0.2-1); TOT PROT 7.6 g/dl (6.4-8.2)
[2022-07-06 15:25] LABS: URINE APPEARANCE CLEAR; URINE BILIRUBIN NEGATIVE (NEGATIVE); URINE COLOR YELLOW; URINE GLUCOSE (UA) NEGATIVE (NEGATIVE); URINE KETONE TRACE (NEGATIVE); URINE LEUK ESTERASE NEGATIVE (NEGATIVE); URINE NITRITE NEGATIVE (NEGATIVE); URINE PROTEIN NEGATIVE (NEGATIVE)
[2022-07-06 16:15] VITALS: BP 135/77; PULSE 78; TEMP 97.7
== END 2022-07-06 16:12 | disposition home or self-care (01) ==
LOC: JER 09:08
PROC: 3E0333Z Introduction of Anti-inflammatory into Peripheral Vein, Percutaneous Approach (ICD-10-PCS; principal; 2022-07-06)
PROC: 3E0337Z Introduction of Electrolytic and Water Balance Substance into Peripheral Vein, Percutaneous Approach (ICD-10-PCS; 2022-07-06)
DX: R10.13 Epigastric pain (principal); R10.32 Left lower quadrant pain; R10.12 Left upper quadrant pain
CPT/HCPCS: 36415; 71046-TC-FY; 74176-TC; 80053; 81003; 83690; 84484; 85025; 85610; 85730; 87086; 93005; 93010; 96360; 96374; 99285-25

== ENCOUNTER 2023-01-15 17:31 | Emergency (ER) | payer OTHER ==
[2023-01-15 18:24] LABS: MCH 32.1 pg (25.7-33.7); MEAN CELL VOLUME 91.5 fl (80-96); MEAN PLT VOLUME 7.9 fl (7.5-11.1); PLATELET COUNT 211.6 10^3/uL (134-434); RBC 4.04 10^6/uL (4.00-5.60); RDW 12.9 % (11.9-15.9); WHITE BLOOD COUNT 5.8 10^3/uL (4.0-10.8)
[2023-01-15 18:37] LABS: INR 0.99 (0.83-1.09); PROTHROMBIN TIME (PATIENT) 11.5 SEC (9.7-13.0)
[2023-01-15 18:39] LABS: ACTIVATED PTT 26.6 SECONDS (25.2-36.5)
[2023-01-15 18:44] LABS: PLATELET ESTIMATE ADEQUATE
[2023-01-15 18:48] LABS: ALBUMIN 4.5 g/dl (3.4-5.0); CALCIUM 9.5 mg/dl (8.5-10.1); CREATININE 0.7 mg/dl (0.6-1.3); POTASSIUM 4.2 mmol/L (3.5-5.1); SGOT/AST 21.5 U/L (15-37); SGPT/ALT 21.1 U/L (7-52)
[2023-01-15] MEDS ORDERED: traMADol HCL 50 MG TABLET PO PRN (19:30)
[2023-01-15] MEDS ORDERED: DOCUSATE SODIUM 100 MG CAPSULE (FP) PO PRN (19:39)
[2023-01-15 21:23] VITALS: BMI 28.5
[2023-01-15] MEDS: INSULIN SLIDING SCALE (NOVOLOG) 1 VIAL SQ SCH (21:43)
[2023-01-15] MEDS: ACETAMINOPHEN 1000 MG/100 ML BAG IVPB PRN (21:44)
[2023-01-15] MEDS ORDERED: ATORVASTATIN CA 80 MG TABLET (FP) PO SCH (22:00)
[2023-01-15 22:28] LABS: BILIRUBIN,TOTAL 0.4 mg/dL (0.2-1)
[2023-01-16] MEDS: ATORVASTATIN CA 10 MG TABLET (FP) PO SCH ×2 (03:05→21:22)
[2023-01-16] MEDS: ACETAMINOPHEN 1000 MG/100 ML BAG IVPB PRN (05:46)
[2023-01-16] MEDS: INSULIN SLIDING SCALE (NOVOLOG) 1 VIAL SQ SCH ×5 (08:07→22:43)
[2023-01-16 09:12] LABS: BLOOD UREA NITROGEN 12.4 mg/dl (7-18); CALCIUM 8.9 mg/dl (8.5-10.1); CREATININE 0.6 mg/dl (0.6-1.3); POTASSIUM 4.2 mmol/L (3.5-5.1)
[2023-01-16] MEDS ORDERED: TRANEXAMIC ACID 1000 MG/10 ML VIAL ONE ×3 (09:24→15:01)
[2023-01-16] MEDS ORDERED: VANCOMYCIN 1,000 MG VIAL (RESTRICTED TO ID ONLY) ONE ×2 (09:24→10:44)
[2023-01-16] MEDS ORDERED: MIDAZOLAM HCL 2 MG/2 ML SINGLE DOSE VIAL ONE (09:42)
[2023-01-16] MEDS ORDERED: ROPIVACAINE HCL 0.5% 30ML VIAL ONE (09:42)
[2023-01-16] MEDS ORDERED: ROCURONIUM BROMIDE 50 MG/5 ML SYRINGE ONE ×3 (10:02→14:14)
[2023-01-16] MEDS ORDERED: PROPOFOL 20 ML ONE ×2 (10:02→14:45)
[2023-01-16] MEDS ORDERED: SEVOFLURANE 250 ML BTL ONE (10:04)
[2023-01-16] MEDS ORDERED: ONDANSETRON 4 MG/2 ML VIAL ONE ×2 (10:46→16:49)
[2023-01-16] MEDS ORDERED: ceFAZolin SODIUM 1 GM VIAL ONE ×2 (10:46→14:13)
[2023-01-16] MEDS ORDERED: DEXAMETHASONE SOD PHOSPHATE 4 MG/1 ML VIAL ONE (10:46)
[2023-01-16] MEDS ORDERED: SUGAMMADEX SODIUM 200 MG/2 ML VIAL ONE (14:35)
[2023-01-16] MEDS ORDERED: ONDANSETRON 4 MG/2 ML VIAL IVPUSH PRN (16:10)
[2023-01-16] MEDS ORDERED: PROMETHAZINE HCL 25 MG/1 ML VIAL IVPB PRN (16:10)
[2023-01-16] MEDS ORDERED: oxyCODONE HCL 5 MG TABLET PO PRN (16:10)
[2023-01-16] MEDS: ACETAMINOPHEN 1000 MG/100 ML BAG IVPB SCH ×2 (16:15→21:23)
[2023-01-16] MEDS ORDERED: FENTANYL CITRATE/PF 50 MCG/ML VIAL ONE ×2 (16:49→17:20)
[2023-01-16] MEDS: CEFAZOLIN 1 GM in DEXTROSE 5%-WATER - 50 ML IVPB SCH (21:22)
[2023-01-16] MEDS ORDERED: VANCOMYCIN 1,000 MG in DEXTROSE 5%-WATER - 250 ML IVPB ONE (23:00)
[2023-01-17] MEDS: oxyCODONE HCL 5 MG TABLET PO PRN ×3 (02:49→13:00)
[2023-01-17] MEDS: ACETAMINOPHEN 1000 MG/100 ML BAG IVPB SCH ×2 (03:55→09:34)
[2023-01-17] MEDS: CEFAZOLIN 1 GM in DEXTROSE 5%-WATER - 50 ML IVPB SCH (05:23)
[2023-01-17] MEDS ORDERED: HYDROmorphone HCl 2 MG/ML VIAL IVPUSH ONE (06:30)
[2023-01-17] MEDS: INSULIN SLIDING SCALE (NOVOLOG) 1 VIAL SQ SCH (06:42)
[2023-01-17 09:18] LABS: HEMATOCRIT 30.2 % (35.4-49); HEMOGLOBIN 10.4 G/dL (11.7-16.9); MCH 31.4 pg (25.7-33.7); MCHC 34.4 g/dl (32.0-35.9); MEAN CELL VOLUME 91.3 fl (80-96); MEAN PLT VOLUME 8.8 fl (7.5-11.1); PLATELET COUNT 221.6 10^3/uL (134-434); RBC 3.31 10^6/uL (4.00-5.60); RDW 13.1 % (11.9-15.9); WHITE BLOOD COUNT 10.2 10^3/uL (4.0-10.8)
[2023-01-17 09:43] LABS: BLOOD UREA NITROGEN 16.1 mg/dl (7-18); CALCIUM 8.4 mg/dl (8.5-10.1); CREATININE 0.6 mg/dl (0.6-1.3); POTASSIUM 4.3 mmol/L (3.5-5.1)
[2023-01-17] MEDS ORDERED: ASPIRIN 325 MG TABLET PO SCH (10:00)
[2023-01-17] MEDS ORDERED: INSULIN SLIDING SCALE (NOVOLOG) 1 VIAL SQ SCH (11:00)
[2023-01-17 13:33] VITALS: BP 142/70; PULSE 87; RESP 18; TEMP 98.7
[2023-01-17] MEDS ORDERED: ACETAMINOPHEN 500 MG TABLET (FP) PO PRN (17:00)
== END 2023-01-17 13:34 | disposition home or self-care (01) ==
LOC: FER 17:31 → FM/S 20:16
PROVIDERS: ADMIT Internal Medicine; ATTEND Internal Medicine
PROC: 0PSG04Z Reposition Left Humeral Shaft with Internal Fixation Device, Open Approach (ICD-10-PCS; principal; 2023-01-15)
PROC: 3E03329 Introduction of Other Anti-infective into Peripheral Vein, Percutaneous Approach (ICD-10-PCS; 2023-01-15)
PROC: 3E033NZ Introduction of Analgesics, Hypnotics, Sedatives into Peripheral Vein, Percutaneous Approach (ICD-10-PCS; 2023-01-15)
PROC: 3E013VG Introduction of Insulin into Subcutaneous Tissue, Percutaneous Approach (ICD-10-PCS; 2023-01-15)
DX: S42.202A Unspecified fracture of upper end of left humerus, initial encounter for closed fracture (principal); W18.39XA Other fall on same level, initial encounter; Y93.64 Activity, baseball; Y92.89 Other specified places as the place of occurrence of the external cause; E11.9 Type 2 diabetes mellitus without complications; E78.5 Hyperlipidemia, unspecified
CPT/HCPCS: 36415; 71045-TC-FY; 73030-TC-LT-FY; 73110-TC-LT-FY; 80048; 80053; 81003; 82550; 82553; 82962; 84484; 85027; 85610; 85730; 86850; 86900; 86901; 93005; 94760; 96365; 96367; 96372; 96375; 96376; 99285-25; C1713; G0378

== ENCOUNTER 2024-09-30 06:25 | Day surgery (SDC) | payer OTHER ==
[2024-09-27 15:57] VITALS: BMI 27.8
[2024-09-30] MEDS ORDERED: PATIENT'S OWN MEDICATION (NON-FORMULARY) (Dulaglutide [Trulicity] 0.75 MG/0.5 ML Pen.Injct SQ SCH (07:15)
[2024-09-30] MEDS ORDERED: BUPIVACAINE HCL/EPINEPHRINE/PF 30 ML VIAL IJ ONE (07:17)
[2024-09-30] MEDS ORDERED: EPINEPHrine 1:1,000 1,000 MCG/ML ML ONE (07:17)
[2024-09-30] MEDS ORDERED: MIDAZOLAM HCL 2 MG/2 ML SINGLE DOSE VIAL ONE (07:20)
[2024-09-30] MEDS ORDERED: FENTANYL CITRATE/PF 50 MCG/ML VIAL ONE (07:20)
[2024-09-30] MEDS ORDERED: BUPIVACAINE HCL/PF 0.5% (5 MG/ML) 30 ML VIAL IJ ONE (07:20)
[2024-09-30] MEDS ORDERED: DEXMEDETOMIDINE HCL 200 MCG/2 ML IVPB ONE (07:20)
[2024-09-30] MEDS: BUPIVACAINE 0.25% /EPI 1:200,000 10 ML VIAL NR ONE ×2 (07:38→08:15)
[2024-09-30] MEDS ORDERED: PROPOFOL 40 ML ONE (07:38)
[2024-09-30] MEDS ORDERED: SUCCINYLCHOLINE CHLORIDE 200 MG/10 ML SYRINGE ONE (07:38)
[2024-09-30] MEDS ORDERED: PROPOFOL 20 ML ONE (07:40)
[2024-09-30] MEDS ORDERED: PHENYLEPHRINE HCL 10 MG/1 ML SINGLE DOSE VIAL ONE (09:09)
[2024-09-30] MEDS ORDERED: ACETAMINOPHEN INJECTION 100 ML ONE (09:33)
[2024-09-30] MEDS ORDERED: ceFAZolin SODIUM 1 GM VIAL ONE (09:44)
[2024-09-30] MEDS ORDERED: DEXAMETHASONE SOD PHOSPHATE 4 MG/1 ML VIAL ONE (09:44)
[2024-09-30] MEDS ORDERED: LIDOCAINE HCL/PF 2% SDV 5ML VIAL ONE (09:44)
[2024-09-30] MEDS ORDERED: ONDANSETRON 4 MG/2 ML VIAL ONE (09:44)
[2024-09-30] MEDS ORDERED: PATIENT'S OWN MEDICATION (NON-FORMULARY) (Dapagliflozin Propanediol [Farxiga] 5 MG Tablet) PO SCH (10:00)
[2024-09-30] MEDS ORDERED: PATIENT'S OWN MEDICATION (NON-FORMULARY) (Insulin Glargine,Hum.Rec.Anlog [Basaglar Kwikpen SQ SCH (10:00)
[2024-09-30] MEDS ORDERED: FOSINOPRIL SODIUM 40 MG PO SCH (10:00)
[2024-09-30] MEDS ORDERED: ASPIRIN PO SCH (10:00)
[2024-09-30 11:08] VITALS: RESP 16; TEMP 97.4
[2024-09-30 12:03] VITALS: BP 110/67; PULSE 65
== END 2024-09-30 12:00 | disposition home or self-care (01) ==
LOC: FASU 06:25
PROVIDERS: ATTEND Orthopaedic Surgery
PROC: 0RNK4ZZ Release Left Shoulder Joint, Percutaneous Endoscopic Approach (ICD-10-PCS; principal; 2024-09-30 08:15)
PROC: 0RQK4ZZ Repair Left Shoulder Joint, Percutaneous Endoscopic Approach (ICD-10-PCS; 2024-09-30 08:15)
DX: M75.02 Adhesive capsulitis of left shoulder (principal); M75.52 Bursitis of left shoulder; M75.42 Impingement syndrome of left shoulder; M94.212 Chondromalacia, left shoulder; M19.012 Primary osteoarthritis, left shoulder
CPT/HCPCS: 73030-TC-LT-FY; 82010; 82962; 94760; J0131

== ENCOUNTER 2025-01-25 16:17 | Emergency (ER) | payer OTHER ==
[2025-01-25 16:38] VITALS: RESP 18; BMI 28.8
[2025-01-25 18:25] LABS: ABSOLUTE IMMATURE GRANULOCYTES 0.03 x10^3/uL (0.0-0.031); BASOPHILS # 0.04 x10^3/uL (0.01-0.08); EOSINOPHIL % 1.8 % (0.8-7.0); EOSINOPHILS # 0.12 x10^3/uL (0.04-0.54); MCHC 33.0 g/dl (32.3-36.5); MEAN CELL VOLUME 91.1 fl (79.0-92.2); MEAN PLT VOLUME 10.9 fl (9.4-12.4); MONOCYTE # 0.56 x10^3/uL (0.30-0.82); MONOCYTE % 8.4 % (5.3-12.2); RDW 12.6 % (12.2-16.1)
[2025-01-25 18:28] LABS: URINE APPEARANCE CLEAR; URINE BILIRUBIN NEGATIVE (NEGATIVE); URINE COLOR YELLOW; URINE GLUCOSE (UA) NEGATIVE (NEGATIVE); URINE KETONE 1+ (NEGATIVE); URINE LEUK ESTERASE NEGATIVE (NEGATIVE); URINE NITRITE NEGATIVE (NEGATIVE); URINE PROTEIN NEGATIVE (NEGATIVE); URINE UROBILINOGEN 0.2 mg/dL (0.2-1.0)
[2025-01-25] MEDS ORDERED: ASPIRIN 81 MG CHEWABLE TABLETS ONE (18:28)
[2025-01-25 18:33] LABS: INR 0.99 (0.83-1.09); PROTHROMBIN TIME (PATIENT) 10.9 SEC (9.7-13.0)
[2025-01-25] MEDS: ASPIRIN 81 MG CHEWABLE TABLETS PO ONE (18:34)
[2025-01-25 18:36] LABS: ACTIVATED PTT 31.4 SECONDS (25.2-36.5)
[2025-01-25 19:19] LABS: GLUCOSE,RANDOM 113.0 mg/dL (74-106); TOT PROT 7.8 g/dl (6.4-8.2)
[2025-01-25 19:22] LABS: ALK PHOS 50.0 U/L (40-150)
[2025-01-25 19:25] LABS: CREATININE 0.65 mg/dL (0.55-1.3); SGOT/AST 32.0 U/L (5-34); SGPT/ALT 45.0 U/L (0-55)
[2025-01-25 19:37] LABS: N-TERMINAL BNP 22.8 pg/mL (0-299.9)
[2025-01-25 19:48] LABS: HIV INTERPRETATION NEGATIVE (NEGATIVE)
[2025-01-25 19:49] LABS: HCV DIAGNOSTIC IN-HOUSE W/RFLX NON-REACTIVE (NONREACTIVE)
[2025-01-25 19:59] LABS: CO2 22.0 mmol/L (21-32)
[2025-01-25 20:40] VITALS: BP 130/70; PULSE 70; TEMP 97.5
== END 2025-01-25 20:40 | disposition home or self-care (01) ==
LOC: JER 16:17
DX: R07.89 Other chest pain (principal)
CPT/HCPCS: 36415; 71046-TC-FY; 80053; 81003; 83735; 83880; 84484; 85025; 85610; 85730; 86803; 87389; 93005; 93010; 99285-25